=== PATIENT | female | born 1985 ===

== ENCOUNTER 2019-03-07 18:46 | Inpatient (IN) | payer OTHER ==
[~2019-03-07] VITALS: Ht 180.3 cm; Wt 99.3 kg
[2019-03-07] MEDS ORDERED: PRENATAL TABLE1 EAC1 PO (22:21)
== END 2019-03-10 11:37 | disposition home or self-care (01) | DRG 833 ==
LOC: LDR 18:46 → OB/GYN 03-09 13:13
PROVIDERS: ADMIT Obstetrics & Gynecology
PROC: 4A1HXCZ Monitoring of Products of Conception, Cardiac Rate, External Approach (ICD-10-PCS; principal; 2019-03-07)
DX: O13.3 Gestational [pregnancy-induced] hypertension without significant proteinuria, third trimester (principal); Z34.03 Encounter for supervision of normal first pregnancy, third trimester

== ENCOUNTER 2019-03-14 14:55 | Inpatient (IN) | payer OTHER ==
[~2019-03-14] VITALS: Ht 180.3 cm; Wt 0.9 kg
[~2019-03-14 14:55] MED LIST: PRENATAL TABLE1 EAC1 PO
[2019-03-14] MEDS ORDERED: LABETALOL HCL200 MG PO (17:39)
== END 2019-03-19 12:58 | disposition home or self-care (01) | DRG 786 ==
LOC: OB/GYN 14:55 → LDR 14:55 → O/R 03-15 10:18 → OB/GYN 03-15 11:28
PROVIDERS: ADMIT Obstetrics & Gynecology
PROC: BY4FZZZ Ultrasonography of Third Trimester, Single Fetus (ICD-10-PCS; 2019-03-14)
PROC: 4A1HXCZ Monitoring of Products of Conception, Cardiac Rate, External Approach (ICD-10-PCS; 2019-03-14)
PROC: B246ZZZ Ultrasonography of Right and Left Heart (ICD-10-PCS; 2019-03-15)
PROC: 10D00Z1 Extraction of Products of Conception, Low, Open Approach (ICD-10-PCS; principal; 2019-03-15 10:15)
DX: O82 Encounter for cesarean delivery without indication (principal); O60.14X0 Preterm labor third trimester with preterm delivery third trimester, not applicable or unspecified; O14.14 Severe pre-eclampsia complicating childbirth; Z3A.29 29 weeks gestation of pregnancy; Z37.0 Single live birth

== ENCOUNTER 2021-07-18 08:57 | Outpatient (CLI) | payer OTHER ==
[~2021-07-18 08:57] MED LIST changes: +LABETALOL HCL200 MG PO
== END 2021-07-18 10:32 | disposition home or self-care (01) ==
LOC: NST 08:57
PROVIDERS: ATTEND Obstetrics & Gynecology
DX: Z34.83 Encounter for supervision of other normal pregnancy, third trimester (principal)

== ENCOUNTER 2021-07-22 12:41 | Inpatient (IN) | payer OTHER ==
[~2021-07-22] VITALS: Ht 180.3 cm; Wt 104.3 kg
[2021-07-22] MEDS ORDERED: PRENATAL CAPLE1 EAC1 PO (14:11)
[2021-07-22] MEDS ORDERED: CHILDREN'S ASPI81 MG PO (14:12)
[2021-07-24] MEDS ORDERED: LABETALOL HCL200 MG (14:53)
[2021-07-26] MEDS ORDERED: TRANDATE300 MG PO (10:43)
[2021-07-26] MEDS ORDERED: KETO10TA2 PO (10:44)
[2021-07-26] MEDS ORDERED: OXYC1TAB9 PO (10:44)
== END 2021-07-26 13:50 | disposition home or self-care (01) | DRG 788 ==
LOC: LDR 12:41 → SURG-SUITE 07-24 14:42
PROVIDERS: ADMIT Obstetrics & Gynecology; ATTEND Obstetrics & Gynecology
PROC: 4A1HXFZ Monitoring of Products of Conception, Cardiac Rhythm, External Approach (ICD-10-PCS; 2021-07-24)
PROC: B24BYZZ Ultrasonography of Heart with Aorta using Other Contrast (ICD-10-PCS; 2021-07-24)
PROC: 10D00Z1 Extraction of Products of Conception, Low, Open Approach (ICD-10-PCS; principal; 2021-07-24 13:00)
DX: O11.4 Pre-existing hypertension with pre-eclampsia, complicating childbirth (principal); O10.32 Pre-existing hypertensive heart and chronic kidney disease complicating childbirth; I13.10 Hypertensive heart and chronic kidney disease without heart failure, with stage 1 through stage 4 chronic kidney disease, or unspecified chronic kidney disease; I34.0 Nonrheumatic mitral (valve) insufficiency; N18.30 Chronic kidney disease, stage 3 unspecified; O34.211 Maternal care for low transverse scar from previous cesarean delivery; O99.893 Other specified diseases and conditions complicating puerperium; Z3A.30 30 weeks gestation of pregnancy; Z37.0 Single live birth